=== PATIENT | female | born 1965 | race Caucasian/White ===

== ENCOUNTER 2018-09-20 10:29 | Outpatient (CLI) | payer MEDICAID | END 2018-09-20 10:30 | disposition home or self-care (01) | LOC: RAD 10:29 ==

== ENCOUNTER 2018-12-13 12:09 | Outpatient (CLI) | payer MEDICAID | END 2018-12-13 12:10 | disposition home or self-care (01) | LOC: RAD 12:09 | DX: Z12.31 Encounter for screening mammogram for malignant neoplasm of breast (principal) ==